=== PATIENT | male | born 1985 | race American Indian/Alaskan Native ===

== ENCOUNTER 2018-07-04 18:00 | Emergency (ER) | payer OTHER ==
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
[2018-07-04 18:44] VITALS: BP 120/71
[2018-07-04] MEDS ORDERED: NORCO 5/325 PO STA (19:49)
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
== END 2018-07-04 22:16 | disposition home or self-care (01) ==
LOC: ED 18:00
DX: M54.9 Dorsalgia, unspecified (principal); V49.49XA Driver injured in collision with other motor vehicles in traffic accident, initial encounter; Y93.89 Activity, other specified; Y92.89 Other specified places as the place of occurrence of the external cause; Y99.8 Other external cause status
CPT/HCPCS: 72100